=== PATIENT | male | born 1960 | race Caucasian/White ===

== ENCOUNTER 2018-02-23 08:50 | Emergency (ER) | payer OTHER ==
[~2018-02-23] VITALS: Ht 167.6 cm; Wt 79.4 kg
[~2018-02-23 08:50] MED LIST: CIPRO500 MG PO; DOXAZOSIN MESYLA1 M1 PO; FLAGYL250 MG PO; GABAPENTIN800 MG; NORCO 5-325 TA1 EACH PO; Z.0.ADDERALL 30 MG30 PO; Z.0.AVODART0.5 MG PO; Z.0.COQ-10100 MG PO; Z.0.MULTIVITAMINS1 E PO; Z.0.NEXIUM20 MG PO; Z.6.FISH OIL 1,0001 PO; [UNRECOGNIZED DRUG - OTHER] PO
[2018-02-23] MEDS ORDERED: SODIUM CHLORIDE 0.9% 1000ML 1,000 ML IV STA (09:01)
[2018-02-23] MEDS ORDERED: ONDANSETRON HCL INJ 2 MG/ML VIAL IV STA (09:01)
[2018-02-23] MEDS ORDERED: MORPHINE SULFATE INJ 4 MG/ML INJ IV NR (09:01)
[2018-02-23] MEDS ORDERED: ONDANSETRON HCL INJ 2 MG/ML VIAL ONE (09:13)
[2018-02-23] MEDS ORDERED: MORPHINE SULFATE 2 MG/ML SYR ONE (09:13)
[2018-02-23 09:19] LABS: BASOPHILS # (AUTO) 0.1 (0.0-0.1); BASOPHILS % 0.5 % (0.0-1.0); EOSINOPHILS # (AUTO) 0.1 (0.0-0.4); HEMATOCRIT 41.5 % (38.2-49.6); HEMOGLOBIN 14.6 g/dL (14.0-18.0); LYMPHOCYTES % 26.7 % (18.0-39.1); MEAN CORPUSCULAR HEMOGLOBIN 30.8 pg (28-32); MEAN CORPUSCULAR HGB CONC 35.2 g/dL (31-35); MEAN CORPUSCULAR VOLUME 87.6 fL (81-99); MONOCYTES # (AUTO) 1.1 (0.2-0.8); MONOCYTES % 9.7 % (4.4-11.3); NEUTROPHILS % 61.7 % (38.7-80.0); PLATELET COUNT 268 x10e3/uL (140-360); RED BLOOD COUNT 4.74 x10e6/uL (4.3-5.7); RED CELL DISTRIBUTION WIDTH 12.9 % (11.7-14.4)
[2018-02-23] MEDS ORDERED: ESCITALOPRAM OXA5 MG PO (09:28)
[2018-02-23] MEDS ORDERED: VALACYCLOVIR1000 MG PO (09:28)
[2018-02-23 09:39] LABS: ALANINE AMINOTRANSFERASE 82 IU/L (0-55); ALBUMIN 3.7 g/dL (3.5-5.0); ALBUMIN/GLOBULIN RATIO 1.2 (0.8-2.0); ALKALINE PHOSPHATASE 50 IU/L (40-150); ANION GAP 13.6 mmol/L (8-16); BLOOD UREA NITROGEN 15 mg/dL (7-26); BUN/CREATININE RATIO 14 (6-25); CALCIUM 9.1 mg/dL (8.4-10.2); CARBON DIOXIDE 23 mmol/L (22-29); CHLORIDE 103 mmol/L (98-107); CREATINE KINASE 80 IU/L (30-200); EST GLOMERULAR FILTRATION RATE > 60 ML/MIN (60-); GLUCOSE 136 mg/dL (74-118); LIPASE 19 U/L (8-78); POTASSIUM 3.6 mmol/L (3.5-5.1); SODIUM 136 mmol/L (136-145)
--- NOTE | 2018-02-23 11:51 | Diagnostic Imaging Report ---
EXAM: CT Abdomen and Pelvis WITH contrast INDICATION: ^abd pain ^[id number] ^[id number] COMPARISON: CT dated 06/06/2015 TECHNIQUE: Abdomen and pelvis were scanned utilizing a multidetector helical scanner from the lung base to the pubic symphysis after administration of IV contrast. Coronal and sagittal reformations were obtained. Dose modulation, iterative reconstruction, and/or weight based adjustment of the mA/kV was utilized to reduce the radiation dose to as low as reasonably achievable. Routine protocol was performed. Scan was performed when during portal venous phase. IV CONTRAST: 100 mL of Isovue-370 ORAL CONTRAST: Water COMPLICATIONS: None RADIATION DOSE: Total DLP: 632.66 mGy*cm Estimated effective dose: (DLP x 0.015 x size factor) mSv CTDIvol has been reviewed. It is below the limits set by the Radiation Protocol Committee (RPC). FINDINGS: LINES and TUBES: None. LOWER THORAX: Unremarkable HEPATOBILIARY: Hepatic steatosis. No focal hepatic lesions. No biliary ductal dilation. GALLBLADDER: Surgically absent. SPLEEN: No splenomegaly. PANCREAS: No focal masses or ductal dilatation. ADRENALS: No adrenal nodules KIDNEYS/URETERS: Kidneys enhance symmetrically. No hydronephrosis. No renal mass. Unchanged bilateral subcentimeter hypodensities. An exophytic right renal superior pole hypodensity measures 1.4 cm, previously 1.2 cm and shows internal density greater than simple fluid. Subcentimeter left renal inferior pole calculus. GI TRACT: No abnormal distention, wall thickening, or evidence of bowel obstruction. Colonic diverticulosis without evidence of diverticulitis. Appendix is not visualized. PELVIC ORGANS/BLADDER: Unremarkable. LYMPH NODES: No lymphadenopathy. VESSELS: Unremarkable. PERITONEUM / RETROPERITONEUM: No free air or fluid. BONES: Unremarkable. SOFT TISSUES: Small fat-containing umbilical hernia. IMPRESSION: 1. No acute inflammatory process in the abdomen/pelvis. 2. Colonic diverticulosis without evidence of diverticulitis. 3. Hepatic steatosis. 4. Nonobstructive subcentimeter left renal calculus. 5. Slight interval increase in size of an exophytic right renal superior pole hypodensity which is probably a complex cyst. Recommend further evaluation with nonurgent renal ultrasound. Signed by: Dr. Farrukh Gipsno MD on 02/23/2018 11:47 AM
[2018-02-23] MEDS ORDERED: KETOROLAC TROMETHAMINE 30 MG/ML VIAL IV ONE (13:00)
[2018-02-23] MEDS ORDERED: IOPAMIDOL 370 MG/ML 200 ML INFUS..BTL INJ ONE (17:47)
[2018-02-23] MEDS ORDERED: SODIUM CHLORIDE 0.9% 50ML 50 ML ONE (17:47)
== END 2018-02-23 13:21 | disposition home or self-care (01) ==
LOC: ER 08:50
DX: R10.33 Periumbilical pain (principal); R10.84 Generalized abdominal pain; R11.0 Nausea; R19.7 Diarrhea, unspecified; Z87.891 Personal history of nicotine dependence
CPT/HCPCS: 36415; 74177; 80053; 82550; 82553; 83690; 84484; 85025; 93005; 99284; J1885; J2270; J2405; J7030; Q9967